=== PATIENT | male | born 1990 | race Caucasian/White ===

== ENCOUNTER 2016-10-02 13:15 | Emergency (ER) | payer OTHER ==
[2016-10-02 13:32] VITALS: BP 148/79; PULSE 84; RESP 16; TEMP 98.1; O2SAT 94
[2016-10-02] MEDS ORDERED: IPRATROPIUM/ALBUTEROL 3 ML DEYVIAL IH ONE (13:35)
[2016-10-02] MEDS ORDERED: predniSONE 20 MG TAB PO ONE (13:39)
[2016-10-02] MEDS ORDERED: CEPHALEXIN 500 MG CAP PO ONE (13:40)
--- NOTE | 2016-10-02 13:41 | UCPHY ---
H & P Patient Type: New Chief Complaint Nursing Narrative: C/o SOB, chest congestion, productive cough with yellow mucus x 3 days. Also requests proair inhaler refill. Denies fever. Time Seen by Provider: 10/02/16 13:31 HPI/ROS: CHIEF COMPLAINT: Wheezing HISTORY OF PRESENT ILLNESS: Patient is a 25-year-old man with a history of mild asthma who comes to the Urgent Care complaining of wheezing and shortness of breath. He started having a runny nose and sore throat 4 days ago. His symptoms resolved but is now gone into his chest. He has not had a fever. No headache. Mild sinus congestion. REVIEW OF SYSTEMS: Constitutional: denies: chills, fever, recent illness, recent injury EENTM: See HPI Respiratory: See HPI Cardiac: denies: chest pain, irregular heart rate, lightheadedness, palpitations Gastrointestinal/Abdominal: denies: abdominal pain, diarrhea, nausea, vomiting, blood streaked stools Genitourinary: denies: dysuria, frequency, hematuria, pain Musculoskeletal: denies: joint pain, muscle pain Skin: denies: lesions, rash, jaundice, bruising Neurological: denies: headache, numbness, paresthesia, tingling, dizziness, weakness Hematologic/Lymphatic: denies: blood clots, easy bleeding, easy bruising Immunologic/allergic: denies: HIV/AIDS, transplant EXAM: GENERAL: Well-appearing, well-nourished and in no acute distress. HEAD: Atraumatic, normocephalic. EYES: Pupils equal round and reactive to light, extraocular movements intact, sclera anicteric, conjunctiva are normal. ENT: TMs normal, nares patent, oropharynx clear without exudates. Moist mucous membranes. NECK: Normal range of motion, supple without lymphadenopathy or JVD. LUNGS: Bilateral wheezes HEART: Regular rate and rhythm without murmurs, rubs or gallops. ABDOMEN: Soft, nontender, normoactive bowel sounds. No guarding, no rebound. No masses appreciated. BACK: No CVA tenderness, no spinal tenderness, step-offs or deformities EXTREMITIES: Normal range of motion, no pitting or edema. No clubbing or cyanosis. NEUROLOGICAL: Cranial nerves II through XII grossly intact. Normal speech, normal gait. 5/5 strength, normal movement in all extremities, normal sensation PSYCH: Normal mood, normal affect. SKIN: Warm, dry, normal turgor, no visible rashes or lesions. Source: Patient Exam Limitations: No limitations - Personal History Current Tetanus Diphtheria and Acellular Pertussis (TDAP): Yes Tetanus Vaccine Date: within 10 years - Medical/Surgical History Hx Asthma: Yes Hx Chronic Respiratory Disease: No Hx Diabetes: No Hx Cardiac Disease: No Hx Renal Disease: No Hx Cirrhosis: No Hx Alcoholism: No Hx HIV/AIDS: No Hx Splenectomy or Spleen Trauma: No Other PMH: asthma - Family History Significant Family History: No pertinent family hx - Social History Smoking Status: Never smoked Alcohol Use: Sober Drug Use: None Constitutional: Initial Vital Signs Temperature (C) 36.7 C 10/02/16 13:27 Heart Rate 84 10/02/16 13:27 Respiratory Rate 16 10/02/16 13:27 Blood Pressure 148/79 H 10/02/16 13:27 O2 Sat (%) 94 10/02/16 13:27 O2 Delivery Mode Room Air Allergies/Adverse Reactions: mold Allergy (Intermediate, Verified 10/02/16 13:32) asthma Home Medications: Medication Instructions Recorded AZITHROMYCIN [Z-PACK] 250 mg PO DAILY #4 tab 10/02/16 Albuterol [Proventil Inhaler HFA 2 puffs IH Q4 PRN #1 mdi 10/02/16 (*)] Proair Hfa Icu (*) 10/02/16 predniSONE 60 mg PO DAILY #15 tab 10/02/16 Medical Decision Making - Diagnostics Imaging: X-ray: chest x-ray was obtained. I viewed the images myself on the PACS system. My interpretation of the images is: Bronchitis. The radiologist interpretation is he bronchitis. ED Course/Re-evaluation: 2:15 p.m. the patient feels better after albuterol. I encouraged him to continue taking this and will add azithromycin and prednisone. His chest x-ray is consistent with bronchitis. The patient understands and agrees with this plan and declines any further workup or testing at this time. Differential Diagnosis: Partial list of the Differential diagnosis considered include but were not limited to; bronchitis, pneumonia, asthma exacerbation and although unlikely based on the history and physical exam, I also considered PE, acute coronary disease. I discussed these differential diagnoses and the plan with the patient as well as the usual and expected course. The patient understands that the diagnosis is provisional and that in medicine we are not always correct and that further workup is often warranted. Usual and customary warnings were given. All of the patient's questions were answered. The patient was instructed to return to the emergency department should the symptoms at all worsen or return, otherwise to followup with the physician as we discussed. - Data Points Medications Given: Discontinued Medications Albuterol/Ipratropium (Duoneb) 3 ml IH EDNOW ONE Stop: 10/02/16 13:36 Last Admin: 10/02/16 14:03 Dose: 3 ml Azithromycin (Zithromax) 500 mg PO EDNOW ONE PRN Reason: Protocol Stop: 10/02/16 14:18 Last Admin: 10/02/16 14:35 Dose: 500 mg Cephalexin HCl (Keflex) 500 mg PO EDNOW ONE PRN Reason: Protocol Stop: 10/02/16 13:41 Last Admin: 10/02/16 13:40 Dose: 500 mg Prednisone (Prednisone) 60 mg PO EDNOW ONE Stop: 10/02/16 13:40 Last Admin: 10/02/16 13:40 Dose: 60 mg Departure - Departure Disposition: Home, Routine, Self-Care Clinical Impression: Asthma exacerbation, Bronchitis Condition: Fair Instructions: Asthma (ED), Acute Bronchitis (ED) Referrals: Anselmo Cruz MD [Primary Care Provider] - As per Instructions Prescriptions: Albuterol [Proventil Inhaler HFA (*)] 2 puffs IH Q4 PRN #1 mdi PRN Reason: Short Of Breath/Dyspnea AZITHROMYCIN [Z-PACK] 250 mg PO DAILY #4 tab predniSONE 60 mg PO DAILY #15 tab - PQRS PQRS Measurement: Not applicable
[2016-10-02] MEDS ORDERED: AZITHROMYCIN 250 MG TAB PO ONE (14:17)
== END 2016-10-02 14:36 | disposition home or self-care (01) ==
LOC: CED 13:15
DX: J45.901 Unspecified asthma with (acute) exacerbation (principal)
CPT/HCPCS: 71020-PO; 99204-PO; G0463-PO